=== PATIENT | female | born 1975 ===

== ENCOUNTER 2021-09-03 10:06 | Outpatient (CLI) | payer OTHER ==
[2021-09-03 11:30] LABS: Basophils % (Auto) 0.5 % (0.0-1.8); Eosinophils # (Auto) 0.2 K/mm3 (0.0-0.4); Eosinophils % (Auto) 2.8 % (0.0-4.3); Hematocrit 39.6 % (30.3-42.9); Hemoglobin 12.9 gm/dl (10.1-14.3); Lymphocytes # (Auto) 2.5 K/mm3 (1.2-5.4); Lymphocytes % (Auto) 29.8 % (13.4-35.0); Mean Corpuscular HGB Conc 33 % (30-34); Mean Corpuscular Volume 91 fl (79-97); Monocytes # (Auto) 0.5 K/mm3 (0.0-0.8); Monocytes % (Auto) 6.2 % (0.0-7.3); Platelet Count 265 K/mm3 (140-440); Red Blood Count 4.37 M/mm3 (3.65-5.03)
[2021-09-03 11:54] LABS: Alanine Aminotransferase 19 units/L (7-56); Albumin 4.8 g/dL (3.9-5); Blood Urea Nitrogen 9 mg/dL (7-17); Calcium 9.4 mg/dL (8.4-10.2); Chol/HDL Ratio 4.13 %; HDL Cholesterol 44 mg/dL (40-59); Hemolysis Index 5; LDL Cholesterol,Direct 120 mg/dL (50-130)
[2021-09-03 11:57] LABS: BUN/Creatinine Ratio 18
[2021-09-05 16:49] LABS: Vitamin D, 25-OH, D2 <4 ng/mL
== END 2021-09-03 10:07 | disposition home or self-care (01) ==
LOC: LABHHL 10:06
PROVIDERS: ATTEND Internal Medicine
DX: Z00.00 Encounter for general adult medical examination without abnormal findings (principal); E78.5 Hyperlipidemia, unspecified; R73.9 Hyperglycemia, unspecified; E07.9 Disorder of thyroid, unspecified; D50.9 Iron deficiency anemia, unspecified
CPT/HCPCS: 36415; 80053; 80061; 82306; 83036; 84443; 85025